=== PATIENT | female | born 1935 | race Caucasian/White ===

== ENCOUNTER 2024-09-16 07:30 | Inpatient (IN) | payer MEDICARE, OTHER ==
[~2024-09-16] VITALS: Ht 170.2 cm; Wt 55.4 kg
[2024-09-16] MEDS ORDERED: LISI10TA24 PO (07:55)
[2024-09-16] MEDS ORDERED: FLUT1BLS2 INH (07:55)
[2024-09-16 09:59] LABS: BASO # 0.0 10^3/uL (0.0-0.2); BASO % 0.1 % (0.0-1.0); EOS # 0.0 10^3/uL (0.0-0.5); EOS % 0.1 % (0.0-3.0); LYMPH # 0.2 10^3/uL (1.5-5.0); LYMPH % 1.3 % (24.0-44.0); MONO # 0.5 10^3/uL (0.0-0.8); MONO % 3.2 % (2.0-8.0); NEUTROPHILS # 15.8 10^3/uL (1.5-8.5); NEUTROPHILS % 94.4 % (36.0-66.0); PLATELET COUNT, AUTOMATED 238 10^3/uL (150-450)
[2024-09-16 10:06] LABS: CALCIUM LEVEL 8.0 MG/DL (8.3-10.6); CARBON DIOXIDE LEVEL 24.0 MMOL/L (20-31); CHLORIDE LEVEL 92.0 MMOL/L (98-107); CREATININE FOR GFR 0.79 MG/DL (0.55-1.30); GLOMERULAR FILTRATION RATE 71.9 (>32); POTASSIUM SERUM 3.5 MMOL/L (3.5-5.1); SODIUM LEVEL 128.0 MMOL/L (136-145)
[2024-09-16] MEDS: AZITHROMYCIN 250 MG TABLET PO ONE (10:41)
[2024-09-16] MEDS: NS (Normal Saline) 0.9% 1,000 ML IV SCH (10:41)
[2024-09-16] MEDS: cefTRIAXone SOD 1 GM in DEXTROSE 5% (D5W) ADV/MINI-BAG 50 ML IV ONE ×2 (10:41→15:04)
[2024-09-16] MEDS ORDERED: MELO7.5T35 PO (10:45)
[2024-09-16] MEDS ORDERED: HOME MED LIST COMPLETE! XX SCH (10:50)
[2024-09-16] MEDS ORDERED: ISOVUE-370 76% 100 ML VIAL As Ordered ONE (13:24)
[2024-09-16] MEDS: guaiFENesin ER TABLET 600 MG TAB PO SCH (13:27)
[2024-09-16] MEDS: METOPROLOL TART 25 MG TABLET PO SCH (13:28)
[2024-09-16 13:51] LABS: KETONE, URINE AUTO RFX NEGATIVE (NEGATIVE); LEUKOCYTE ESTERASE UR AUTO RFX NEGATIVE (NEGATIVE); NITRITE, URINE AUTO RFX NEGATIVE (NEGATIVE); RBC, URINE AUTO RFX 0 /HPF (0-3); SQUAM EPITHELIAL CELL UR AURFX 2 /HPF (0-6); WBC, URINE AUTO RFX 6 /HPF (0-3)
[2024-09-16 14:46] VITALS: BP 110/55; TEMP 99.7; O2SAT 92
[2024-09-16] MEDS: ACETAMINOPHEN 325 MG TAB PO PRN (15:04)
[2024-09-16] MEDS: ENOXAPARIN 30 MG/0.3 ML SYRINGE (J1650 PER 10MG) SC SCH (15:41)
[2024-09-16] MEDS: LEVALBUTEROL 1.25 MG 0.5ML CONCENTRATE NEB NEB SCH (16:04)
[2024-09-16 17:12] VITALS: BP 95/54; TEMP 98.1; O2SAT 93
[2024-09-16 18:13] VITALS: BP 102/58; TEMP 98.3; O2SAT 97
[2024-09-16 19:20] LABS: CALCIUM LEVEL 7.6 MG/DL (8.3-10.6); CARBON DIOXIDE LEVEL 22.0 MMOL/L (20-31); CHLORIDE LEVEL 92.0 MMOL/L (98-107); CREATININE FOR GFR 0.8 MG/DL (0.55-1.30); GLOMERULAR FILTRATION RATE 70.8 (>32); POTASSIUM SERUM 3.5 MMOL/L (3.5-5.1); SODIUM LEVEL 128.0 MMOL/L (136-145)
[2024-09-16 19:47] VITALS: BP 103/55; TEMP 97.4; O2SAT 96
[2024-09-16 20:12] LABS: OSMOLALITY SERUM 266.0 MOSM/KG (280-301)
[2024-09-16] MEDS: SODIUM CHLORIDE 1 GM TAB PO SCH (20:12)
[2024-09-16] MEDS: ADVAIR HFA 230/21 MCG INHALER INH SCH (20:33)
[2024-09-17] VITALS (8 sets, daily range): BP systolic 112–150; BP diastolic 54–80; TEMP 97.8–98.8; O2SAT 97
[2024-09-17 06:52] LABS: PLATELET COUNT, AUTOMATED 228 10^3/uL (150-450)
[2024-09-17 07:18] LABS: CALCIUM LEVEL 7.6 MG/DL (8.3-10.6); CARBON DIOXIDE LEVEL 26.0 MMOL/L (20-31); CHLORIDE LEVEL 93.0 MMOL/L (98-107); CREATININE FOR GFR 0.83 MG/DL (0.55-1.30); GLOMERULAR FILTRATION RATE 67.8 (>32); POTASSIUM SERUM 3.5 MMOL/L (3.5-5.1); SODIUM LEVEL 131.0 MMOL/L (136-145)
[2024-09-17] MEDS: AZITHROMYCIN 250 MG TABLET PO SCH (08:55)
[2024-09-17] MEDS: cefTRIAXone SOD 2 GM in DEXTROSE 5% (D5W) ADV/MINI-BAG 50 ML IV SCH (08:55)
[2024-09-17] MEDS ORDERED: cefTRIAXone SOD 1 GM in DEXTROSE 5% (D5W) ADV/MINI-BAG 50 ML IV SCH (09:00)
[2024-09-17] MEDS ORDERED: cefTRIAXone SOD 2 GM in DEXTROSE 5% (D5W) ADV/MINI-BAG 50 ML IV SCH (09:00)
[2024-09-17] MEDS: POTASSIUM CHLORIDE 10MEQ SR TABLET PO ONE (10:50)
[2024-09-17] MEDS: LIDOCAINE 5% PATCH TD SCH (10:51)
[2024-09-17] MEDS: PANTOPRAZOLE 40MG TAB PO SCH (13:01)
[2024-09-18] VITALS (7 sets, daily range): BP systolic 135–159; BP diastolic 66–80; TEMP 98–98.6; O2SAT 94–97
[2024-09-18 06:50] LABS: BASO # 0.0 10^3/uL (0.0-0.2); BASO % 0.1 % (0.0-1.0); EOS # 0.1 10^3/uL (0.0-0.5); EOS % 0.4 % (0.0-3.0); LYMPH # 0.6 10^3/uL (1.5-5.0); LYMPH % 4.2 % (24.0-44.0); MONO # 0.7 10^3/uL (0.0-0.8); MONO % 5.2 % (2.0-8.0); NEUTROPHILS # 12.4 10^3/uL (1.5-8.5); NEUTROPHILS % 88.5 % (36.0-66.0); PLATELET COUNT, AUTOMATED 229 10^3/uL (150-450)
[2024-09-18 07:40] LABS: CALCIUM LEVEL 7.8 MG/DL (8.3-10.6); CARBON DIOXIDE LEVEL 22.0 MMOL/L (20-31); CHLORIDE LEVEL 95.0 MMOL/L (98-107); CREATININE FOR GFR 0.68 MG/DL (0.55-1.30); GLOMERULAR FILTRATION RATE 83.7 (>32); POTASSIUM SERUM 3.9 MMOL/L (3.5-5.1); SODIUM LEVEL 129.0 MMOL/L (136-145)
[2024-09-18] MEDS ORDERED: LEVALBUTEROL 1.25 MG 0.5ML CONCENTRATE NEB INH PRN (09:45)
[2024-09-18 11:14] LABS: C REACTIVE PROTEIN QUANTITATIV 26.84 MG/DL (<1.0)
[2024-09-18] MEDS: MIRALAX *UNIT DOSE* 17 GM PACKET PO SCH (11:31)
[2024-09-18] MEDS: NS (Normal Saline) 0.9% 1,000 ML IV SCH (12:35)
[2024-09-18] MEDS: BENZOCAINE 10% 9 GM TUBE MT SCH (13:00)
[2024-09-18] MEDS: ENOXAPARIN 60 MG/0.6 ML SYRINGE (J1650 PER 10MG) SC SCH (19:53)
[2024-09-18] MEDS: SENNOSIDES/DOCUSATE SODIUM 8.6 MG/50MG TAB PO SCH (19:53)
[2024-09-19 00:07] VITALS: BP 124/58; TEMP 98.2; O2SAT 96
[2024-09-19 04:33] VITALS: BP 132/61; TEMP 98; O2SAT 96
[2024-09-19 06:49] LABS: BASO # 0.0 10^3/uL (0.0-0.2); BASO % 0.1 % (0.0-1.0); EOS # 0.1 10^3/uL (0.0-0.5); EOS % 0.9 % (0.0-3.0); LYMPH # 0.5 10^3/uL (1.5-5.0); LYMPH % 6.1 % (24.0-44.0); MONO # 0.5 10^3/uL (0.0-0.8); MONO % 6.0 % (2.0-8.0); NEUTROPHILS # 7.6 10^3/uL (1.5-8.5); NEUTROPHILS % 85.8 % (36.0-66.0); PLATELET COUNT, AUTOMATED 269 10^3/uL (150-450)
[2024-09-19 07:17] LABS: CALCIUM LEVEL 7.8 MG/DL (8.3-10.6); CARBON DIOXIDE LEVEL 20.0 MMOL/L (20-31); CHLORIDE LEVEL 98.0 MMOL/L (98-107); CREATININE FOR GFR 0.66 MG/DL (0.55-1.30); GLOMERULAR FILTRATION RATE 84.3 (>32); POTASSIUM SERUM 4.1 MMOL/L (3.5-5.1); SODIUM LEVEL 133.0 MMOL/L (136-145)
[2024-09-19 07:32] LABS: C REACTIVE PROTEIN QUANTITATIV 19.67 MG/DL (<1.0)
[2024-09-19 08:50] VITALS: BP 133/63; O2SAT 96
[2024-09-19] MEDS ORDERED: ELIQ5TAB PO (10:16)
[2024-09-19 12:15] VITALS: BP 138/67; TEMP 98.2; O2SAT 98
[2024-09-19 16:00] VITALS: BP 128/69; TEMP 98.4; O2SAT 98
[2024-09-19 20:00] VITALS: BP 157/67; TEMP 98.7; O2SAT 94
[2024-09-20] VITALS: BP 133/60; TEMP 98.3; O2SAT 96
[2024-09-20 03:17] VITALS: BP 125/61; TEMP 97.9; O2SAT 95
[2024-09-20 05:21] LABS: BASO # 0.0 10^3/uL (0.0-0.2); BASO % 0.3 % (0.0-1.0); EOS # 0.0 10^3/uL (0.0-0.5); EOS % 0.4 % (0.0-3.0); LYMPH # 0.5 10^3/uL (1.5-5.0); LYMPH % 6.3 % (24.0-44.0); MONO # 0.6 10^3/uL (0.0-0.8); MONO % 7.6 % (2.0-8.0); NEUTROPHILS # 6.1 10^3/uL (1.5-8.5); NEUTROPHILS % 84.2 % (36.0-66.0); PLATELET COUNT, AUTOMATED 287 10^3/uL (150-450)
[2024-09-20 05:40] LABS: CALCIUM LEVEL 7.6 MG/DL (8.3-10.6); CARBON DIOXIDE LEVEL 21.0 MMOL/L (20-31); CHLORIDE LEVEL 97.0 MMOL/L (98-107); CREATININE FOR GFR 0.69 MG/DL (0.55-1.30); GLOMERULAR FILTRATION RATE 83.4 (>32); POTASSIUM SERUM 4.0 MMOL/L (3.5-5.1); SODIUM LEVEL 130.0 MMOL/L (136-145)
[2024-09-20 05:44] LABS: C REACTIVE PROTEIN QUANTITATIV 14.25 MG/DL (<1.0)
[2024-09-20 08:29] VITALS: BP 120/67; TEMP 97.7; O2SAT 95
[2024-09-20] MEDS ORDERED: ELIQ2.5T PO (11:14)
[2024-09-20 16:00] VITALS: BP 140/67; TEMP 97.5; O2SAT 95
[2024-09-20 18:40] LABS: SODIUM,RANDOM URINE 52 MMOL/L
[2024-09-20 20:18] VITALS: BP 150/68; TEMP 98.8; O2SAT 93
[2024-09-20] MEDS: APIXABAN 2.5 MG TAB PO SCH (21:26)
[2024-09-20] MEDS: guaiFENesin SYRUP 200 MG/10 ML UDC PO SCH (21:26)
[2024-09-20 23:20] VITALS: BP 142/73; TEMP 98.9; O2SAT 93
[2024-09-21 03:34] VITALS: BP 135/62; TEMP 98.6; O2SAT 91
[2024-09-21 05:38] LABS: PLATELET COUNT, AUTOMATED 308 10^3/uL (150-450)
[2024-09-21 06:10] LABS: CALCIUM LEVEL 7.4 MG/DL (8.3-10.6); CARBON DIOXIDE LEVEL 21 MMOL/L (20-31); CHLORIDE LEVEL 98 MMOL/L (98-107); CREATININE FOR GFR 0.60 MG/DL (0.55-1.30); GLOMERULAR FILTRATION RATE 86.3 (>32); IRON (FE) < 5 UG/DL (50-170); PERCENT SATURATION 2.9 % (13.2-45.0); POTASSIUM SERUM 3.9 MMOL/L (3.5-5.1); SODIUM LEVEL 128 MMOL/L (136-145)
[2024-09-21 06:11] LABS: LYMPHOCYTES 1 % (16-44); MONOCYTES 8 % (0-5); NEUTROPHILS 91 % (28-66)
[2024-09-21 06:12] LABS: PLATELET ESTIMATE NORMAL (NORMAL)
[2024-09-21 06:13] LABS: VITAMIN B12 LEVEL 644 PG/ML (211-911)
[2024-09-21 06:26] LABS: C REACTIVE PROTEIN QUANTITATIV 11.35 MG/DL (<1.0)
[2024-09-21 07:56] VITALS: BP 132/60; TEMP 98.5; O2SAT 93
[2024-09-21] MEDS: LEVALBUTEROL 1.25 MG 0.5ML CONCENTRATE NEB INH SCH (10:37)
[2024-09-21] MEDS: FERRIC CARBOXYMALTOSE INJ 750 MG, VIAL MATE ADAPTER 1 EACH in NS 100 ML IV ONE (11:12)
[2024-09-21] MEDS: TOLVAPTAN 7.5 MG HALF-TAB PO ONE (11:42)
[2024-09-21 11:57] VITALS: BP 135/62; TEMP 98.8; O2SAT 92
[2024-09-21 20:37] VITALS: BP 137/65; TEMP 98.5; O2SAT 100
[2024-09-21 21:09] VITALS: BP 135/67
[2024-09-21 23:37] VITALS: BP 139/70; TEMP 97.7; O2SAT 92
[2024-09-22 03:34] VITALS: BP 141/61; TEMP 98.2; O2SAT 93
[2024-09-22 06:41] LABS: BASO # 0.0 10^3/uL (0.0-0.2); BASO % 0.4 % (0.0-1.0); EOS # 0.0 10^3/uL (0.0-0.5); EOS % 0.3 % (0.0-3.0); LYMPH # 0.5 10^3/uL (1.5-5.0); LYMPH % 7.5 % (24.0-44.0); MONO # 0.5 10^3/uL (0.0-0.8); MONO % 7.5 % (2.0-8.0); NEUTROPHILS # 6.0 10^3/uL (1.5-8.5); NEUTROPHILS % 83.3 % (36.0-66.0); PLATELET COUNT, AUTOMATED 352 10^3/uL (150-450)
[2024-09-22 07:01] LABS: C REACTIVE PROTEIN QUANTITATIV 8.63 MG/DL (<1.0)
[2024-09-22 07:06] LABS: CALCIUM LEVEL 7.8 MG/DL (8.3-10.6); CARBON DIOXIDE LEVEL 22.0 MMOL/L (20-31); CHLORIDE LEVEL 102.0 MMOL/L (98-107); CREATININE FOR GFR 0.55 MG/DL (0.55-1.30); GLOMERULAR FILTRATION RATE 88.1 (>32); POTASSIUM SERUM 3.9 MMOL/L (3.5-5.1); SODIUM LEVEL 136.0 MMOL/L (136-145)
[2024-09-22 08:06] VITALS: BP 140/69; TEMP 98; O2SAT 100
[2024-09-22] MEDS ORDERED: MUCI1TAB16 PO (10:38)
[2024-09-22] MEDS ORDERED: PROA1AER2 INH (10:38)
[2024-09-22] MEDS ORDERED: MIRA3350 PO (10:38)
[2024-09-22] MEDS ORDERED: METO25TA4 PO (10:38)
[2024-09-22] MEDS ORDERED: CEFD1CAP9 PO (10:38)
[2024-09-22] MEDS ORDERED: PROT1TAB2 PO (10:51)
[2024-09-22 12:17] VITALS: BP 138/70; TEMP 97.7; O2SAT 97
[2024-09-22 16:35] VITALS: BP 140/68; TEMP 97.8; O2SAT 95
[2024-09-23] MEDS ORDERED: ELIQ2.5T PO (10:28)
[2024-09-23] MEDS ORDERED: PANT-23 PO (10:28)
[2024-09-23] MEDS ORDERED: MIRA3350 PO (10:28)
[2024-09-23] MEDS ORDERED: HYDR12.55 PO (10:28)
[2024-09-23] MEDS ORDERED: ALBU8.5H PO (10:28)
[2024-09-23] MEDS ORDERED: METO25TA4 PO (10:28)
[2024-09-23] MEDS ORDERED: CEFD1CAP9 PO (10:28)
[2024-09-23] MEDS ORDERED: LOPE2TAB12 PO (10:28)
== END 2024-09-22 17:50 | disposition home or self-care (01) | DRG 871 ==
LOC: M ED 07:30 → M ED INP 13:00 → M PCU 14:37
PROVIDERS: ADMIT Internal Medicine; ATTEND Internal Medicine
PROC: B246ZZZ Ultrasonography of Right and Left Heart (ICD-10-PCS; principal; 2024-09-16)
DX: A41.9 Sepsis, unspecified organism (principal); J18.9 Pneumonia, unspecified organism; J96.01 Acute respiratory failure with hypoxia; E87.1 Hypo-osmolality and hyponatremia; I48.92 Unspecified atrial flutter; I50.20 Unspecified systolic (congestive) heart failure; J90 Pleural effusion, not elsewhere classified; D50.9 Iron deficiency anemia, unspecified; Z66 Do not resuscitate; J45.20 Mild intermittent asthma, uncomplicated; I35.0 Nonrheumatic aortic (valve) stenosis; I11.0 Hypertensive heart disease with heart failure; M19.90 Unspecified osteoarthritis, unspecified site; Z90.79 Acquired absence of other genital organ(s); Z87.891 Personal history of nicotine dependence; Z79.899 Other long term (current) drug therapy; Z88.8 Allergy status to other drugs, medicaments and biological substances

== ENCOUNTER 2024-09-23 07:14 | Emergency (ER) | payer MEDICARE, OTHER ==
[~2024-09-23] VITALS: Ht 170.2 cm; Wt 54.1 kg
[~2024-09-23 07:14] MED LIST: CEFD1CAP9 PO; ELIQ2.5T PO; ELIQ5TAB PO; FLUT1BLS2 INH; LISI10TA24 PO; MELO7.5T35 PO; METO25TA4 PO; MIRA3350 PO; MUCI1TAB16 PO; PROA1AER2 INH; PROT1TAB2 PO
[2024-09-23 07:17] VITALS: TEMP 97.4
[2024-09-23] MEDS: NS 500 ML IV ONE (10:05)
[2024-09-23 10:19] LABS: BASO # 0.0 10^3/uL (0.0-0.2); BASO % 0.2 % (0.0-1.0); EOS # 0.1 10^3/uL (0.0-0.5); EOS % 0.6 % (0.0-3.0); LYMPH # 0.6 10^3/uL (1.5-5.0); LYMPH % 6.6 % (24.0-44.0); MONO # 0.5 10^3/uL (0.0-0.8); MONO % 5.8 % (2.0-8.0); NEUTROPHILS # 7.5 10^3/uL (1.5-8.5); NEUTROPHILS % 86.2 % (36.0-66.0); PLATELET COUNT, AUTOMATED 376 10^3/uL (150-450)
[2024-09-23] MEDS ORDERED: ELIQ2.5T PO (10:28)
[2024-09-23] MEDS ORDERED: CEFD1CAP9 PO (10:28)
[2024-09-23] MEDS ORDERED: METO25TA4 PO (10:28)
[2024-09-23] MEDS ORDERED: HYDR12.55 PO (10:28)
[2024-09-23] MEDS ORDERED: PANT-23 PO (10:28)
[2024-09-23] MEDS ORDERED: ALBU8.5H PO (10:28)
[2024-09-23] MEDS ORDERED: MIRA3350 PO (10:28)
[2024-09-23] MEDS ORDERED: LOPE2TAB12 PO (10:28)
[2024-09-23] MEDS ORDERED: HOME MED LIST COMPLETE! XX SCH (10:30)
[2024-09-23 10:46] LABS: CALCIUM LEVEL 7.8 MG/DL (8.3-10.6); CARBON DIOXIDE LEVEL 24.0 MMOL/L (20-31); CHLORIDE LEVEL 101.0 MMOL/L (98-107); CREATININE FOR GFR 0.58 MG/DL (0.55-1.30); GLOMERULAR FILTRATION RATE 87.0 (>32); POTASSIUM SERUM 3.9 MMOL/L (3.5-5.1); SODIUM LEVEL 135.0 MMOL/L (136-145)
[2024-09-23 13:30] VITALS: BP 146/58; O2SAT 96
== END 2024-09-23 14:10 | disposition home or self-care (01) ==
LOC: M ED 07:14
DX: R19.7 Diarrhea, unspecified (principal); I50.22 Chronic systolic (congestive) heart failure; I11.0 Hypertensive heart disease with heart failure; Z88.8 Allergy status to other drugs, medicaments and biological substances; Z79.01 Long term (current) use of anticoagulants; Z79.51 Long term (current) use of inhaled steroids; Z79.2 Long term (current) use of antibiotics; Z79.899 Other long term (current) drug therapy

== ENCOUNTER → 2024-10-05 | Outpatient (REF) | payer MEDICARE, OTHER ==
[~2024-10-05] MED LIST changes: +ALBU8.5H PO; +HYDR12.55 PO; +LOPE2TAB12 PO; +PANT-23 PO
[2024-10-05 17:38] LABS: BASO # 0.1 10^3/uL (0.0-0.2); BASO % 1.2 % (0.0-1.0); EOS # 0.1 10^3/uL (0.0-0.5); EOS % 1.6 % (0.0-3.0); LYMPH # 1.5 10^3/uL (1.5-5.0); LYMPH % 22.6 % (24.0-44.0); MONO # 0.5 10^3/uL (0.0-0.8); MONO % 7.8 % (2.0-8.0); NEUTROPHILS # 4.5 10^3/uL (1.5-8.5); NEUTROPHILS % 66.5 % (36.0-66.0); PLATELET COUNT, AUTOMATED 320 10^3/uL (150-450)
[2024-10-05 18:00] LABS: CALCIUM LEVEL 8.4 MG/DL (8.3-10.6); CARBON DIOXIDE LEVEL 28.0 MMOL/L (20-31); CHLORIDE LEVEL 97.0 MMOL/L (98-107); CREATININE FOR GFR 0.66 MG/DL (0.55-1.30); GLOMERULAR FILTRATION RATE 84.3 (>32); POTASSIUM SERUM 4.7 MMOL/L (3.5-5.1); SODIUM LEVEL 136.0 MMOL/L (136-145)
[2024-10-05 18:01] LABS: IRON (FE) 81.0 UG/DL (50-170)
== END ==
LOC: M LAB REF 16:32
PROVIDERS: ATTEND Family Medicine Addiction Medicine
DX: E87.1 Hypo-osmolality and hyponatremia (principal); D64.9 Anemia, unspecified

== ENCOUNTER → 2024-10-29 | Outpatient (REF) | payer MEDICARE, OTHER ==
[2024-10-29 12:41] LABS: BASO # 0.1 10^3/uL (0.0-0.2); BASO % 0.8 % (0.0-1.0); EOS # 0.3 10^3/uL (0.0-0.5); EOS % 4.1 % (0.0-3.0); LYMPH # 1.4 10^3/uL (1.5-5.0); LYMPH % 19.5 % (24.0-44.0); MONO # 0.6 10^3/uL (0.0-0.8); MONO % 8.6 % (2.0-8.0); NEUTROPHILS # 4.8 10^3/uL (1.5-8.5); NEUTROPHILS % 66.6 % (36.0-66.0); PLATELET COUNT, AUTOMATED 293 10^3/uL (150-450)
[2024-10-29 12:43] LABS: CALCIUM LEVEL 9.0 MG/DL (8.3-10.6); CARBON DIOXIDE LEVEL 29.0 MMOL/L (20-31); CHLORIDE LEVEL 97.0 MMOL/L (98-107); CREATININE FOR GFR 0.66 MG/DL (0.55-1.30); GLOMERULAR FILTRATION RATE 84.3 (>32); POTASSIUM SERUM 3.8 MMOL/L (3.5-5.1); SODIUM LEVEL 134.0 MMOL/L (136-145)
== END ==
LOC: M LAB REF 12:02
PROVIDERS: ATTEND Family Medicine Addiction Medicine
DX: E87.1 Hypo-osmolality and hyponatremia (principal); D64.9 Anemia, unspecified